=== PATIENT | male | born 1940 | race Caucasian/White ===

== ENCOUNTER → 2016-06-02 | Outpatient (CLI) | payer MEDICARE, BC ==
--- NOTE | 2016-06-03 07:12 | XR ---
EXAMINATION TYPE: XR abdomen 2V DATE OF EXAM: 06/02/2016 9:36 AM COMPARISON: NONE HISTORY: Pain FINDINGS: The osseous structures are intact. The bowel gas pattern is nonspecific. Calcification right upper q uadrant noted. Degenerative change of the spine seen. Arthropathy of the hips. Vascular calcification s in the pelvis. IMPRESSION: 1. Nonspecific abdomen. 2. Right upper quadrant calcification could represent a gallstone. Correlate clinically.
== END | disposition home or self-care (01) ==
LOC: RADXRYALE 09:15
PROVIDERS: ATTEND Family Medicine
DX: K82.8 Other specified diseases of gallbladder (principal); R19.4 Change in bowel habit
CPT/HCPCS: 74020

== ENCOUNTER → 2016-06-11 | Outpatient (CLI) | payer MEDICARE, BC ==
[2016-06-11 07:26] LABS: Blood Urea Nitrogen 10 mg/dL (9-20); Non-African American GFR(MDRD) >60 (>60 ml/min/1.73 sqM)
--- NOTE | 2016-06-11 11:58 | CT ---
EXAMINATION TYPE: CT abdomen pelvis w con DATE OF EXAM: 06/11/2016 8:41 AM COMPARISON: 03/04/2012 HISTORY: 75-year-old male changed in bowel habits TECHNIQUE: Contiguous axial scanning of the abdomen and pelvis following administration of 100 ml Omn ipaque 300 IV contrast. Delayed images through the kidneys and coronal/sagittal reconstructions perf ormed. CT DLP: 572.3 mGycm Automated exposure control for dose reduction was used. FINDINGS: Heart is normal size without pericardial effusion. Calcified granuloma posterior right lung base. No pleural effusion. Small hiatal hernia. No focal liver lesion or biliary ductal dilatation. Gallbladder, adrenal glands, right kidney, and pancreas appear within normal limits. Numerous calcifi ed granulomata within the spleen redemonstrated. Pelvic cysts within the left kidney. There is symmetric excretion of contrast by both kidneys. There is fusiform ectasia of the infrarenal abdominal aorta at 2.8 cm minimally increased from 2012 w here it measured 2.6 cm. No shaun aneurysm. No dilated small bowel, free fluid, or free air. Tiny fatty umbilical hernia. There is moderate to large stool seen throughout the colon and scattered colonic diverticulosis great est in the sigmoid colon but no evidence for acute diverticulitis. Mild circumferential bladder wall thickening. Prostate gland is enlarged at 5.5 cm wide with some ke tral prostatic calcifications and some asymmetric patchy enhancement within the right side of the pro state gland. Axial image 81 and coronal image 62. Suspect prior vasectomy. Bones: Mild degenerative changes at the hips and additional degenerative changes seen throughout the spine. No osseous destructive process. IMPRESSION: 1. MODERATE TO LARGE STOOL BURDEN. 2. COLONIC DIVERTICULOSIS GREATEST IN THE SIGMOID COLON WITHOUT ACUTE DIVERTICULITIS. 3. SMALL HIATAL HERNIA AND TINY FATTY UMBILICAL HERNIA. 4. PRIOR GRANULOMATOUS DISEASE. 5. MILD CIRCUMFERENTIAL BLADDER WALL THICKENING COULD REFLECT CYSTITIS OR CHRONIC BLADDER WALL HYPERT ROPHY. 6. PROSTATOMEGALY (5.5 CM WIDE). SUSPECTED BPH. HOWEVER, GIVEN SOME PATCHY ASYMMETRIC ENHANCEMENT WIT HIN THE RIGHT SIDE OF THE PROSTATE, CORRELATE WITH PSA VALUES TO EXCLUDE A SMALL FOCUS OF PROSTATE CA NCER.
== END | disposition home or self-care (01) ==
LOC: RADCTMAIN 06:54
PROVIDERS: ATTEND Family Medicine
DX: K57.30 Diverticulosis of large intestine without perforation or abscess without bleeding (principal); N40.0 Benign prostatic hyperplasia without lower urinary tract symptoms; K42.9 Umbilical hernia without obstruction or gangrene; K44.9 Diaphragmatic hernia without obstruction or gangrene; R19.4 Change in bowel habit
CPT/HCPCS: 82565; 84520; 74177; 36415; Q9967